=== PATIENT | male | born 1980 | race Caucasian/White ===

== ENCOUNTER 2020-01-26 15:08 | Emergency (ER) | payer BC ==
[~2020-01-26] VITALS: Ht 185.4 cm; Wt 78.6 kg
[2020-01-26 15:12] VITALS: BP 143/105
== END 2020-01-26 17:20 | disposition home or self-care (01) ==
LOC: ER 15:08
DX: K50.90 Crohn's disease, unspecified, without complications (principal); Z20.828 Contact with and (suspected) exposure to other viral communicable diseases; Z88.5 Allergy status to narcotic agent
CPT/HCPCS: 36415; 87635; 99281; 99283